=== PATIENT | female | born 1975 | race Hispanic/Latino ===

== ENCOUNTER 2020-10-20 17:49 | Emergency (ER) | payer SELFPAY ==
[~2020-10-20] VITALS: Ht 165.1 cm; Wt 73.9 kg
== END 2020-10-20 19:00 | disposition home or self-care (01) ==
LOC: ER 18:30
DX: R50.9 Fever, unspecified (principal); R05 Cough; R06.02 Shortness of breath; M79.10 Myalgia, unspecified site
CPT/HCPCS: 99282